=== PATIENT | male | born 1975 | race Caucasian/White ===

== ENCOUNTER 2019-05-25 12:50 | Emergency (ER) | payer OTHER ==
[~2019-05-25] VITALS: Ht 172.7 cm; Wt 99.8 kg
== END 2019-05-25 14:59 | disposition home or self-care (01) ==
LOC: ER 12:50
DX: M54.5 Low back pain (principal)

== ENCOUNTER 2025-08-19 11:52 | Emergency (ER) | payer OTHER ==
[~2025-08-19] VITALS: Ht 165.1 cm; Wt 86.2 kg
[2025-08-19] MEDS ORDERED: KETOROLAC TROMETHAMINE 30 MG VIAL IM ONE (14:45)
[2025-08-19] MEDS ORDERED: KETOROLAC TROMETHAMINE 30 MG VIAL ONE (15:09)
[2025-08-19] MEDS ORDERED: TRAMADOL HCL 50 MG TABLET PO ONE (16:30)
== END 2025-08-19 16:41 | disposition home or self-care (01) ==
LOC: ER 11:52
DX: M25.561 Pain in right knee (principal)